=== PATIENT | female | born 1940 | race Hispanic/Latino ===

== ENCOUNTER 2017-11-16 22:24 | Emergency (ER) | payer MEDICARE ==
[~2017-11-16 22:24] MED LIST: ALLO100T PO; FOLI1TAB61 PO; PRAV40TA3 PO; TELM1TAB31 PO
[2017-11-16 23:15] LABS: BASOPHILS % (AUTO) 0.5 % (0.0-5.0); EOSINOPHILS % (AUTO) 1.7 % (0.0-8.0); HEMATOCRIT 29.9 % (36-48); LYMPHOCYTES % (AUTO) 16.2 % (21.0-51.0); MEAN CORPUSCULAR HEMOGLOBIN 30.6 pg (27.0-33.0); MEAN CORPUSCULAR HGB CONC 35.4 g/dL (32.0-36.0); MEAN CORPUSCULAR VOLUME 86.3 fL (79-99); MONOCYTES % (AUTO) 6.2 % (3.0-13.0); NEUTROPHILS % (AUTO) 75.4 % (40.0-77.0); PLATELET COUNT (AUTO) 258 K/uL (130-400); RED BLOOD CELL COUNT(AUTO) 3.47 MIL/uL (4.00-5.50); RED CELL DISTRIBUTION WIDTH 14.7 % (11.0-15.5); WHITE BLOOD COUNT (AUTO) 11.2 K/uL (4.8-10.8)
[2017-11-16 23:34] LABS: CREATININE 1.1 mg/dL (0.5-1.5); POTASSIUM 3.6 mmol/L (3.5-5.1)
[2017-11-16 23:38] LABS: ALBUMIN 3.4 g/dL (3.5-5.0); BILIRUBIN,TOTAL 0.2 mg/dL (0.2-1.0); TOTAL PROTEIN, SERUM 7.8 g/dL (6.0-8.3)
[2017-11-16 23:43] LABS: B-TYPE NATRIURETIC PEPTIDE 15 pg/mL (0-100)
[2017-11-16] MEDS ORDERED: PANTOPRAZOLE SODIUM 40 MG TABLET.DR PO ONE (23:57)
[2017-11-16] MEDS ORDERED: SUCRALFATE 1 GM TABLET ONE (23:57)
== END 2017-11-17 02:41 | disposition home or self-care (01) ==
LOC: EDH 22:24
DX: K29.70 Gastritis, unspecified, without bleeding (principal); E78.5 Hyperlipidemia, unspecified; I10 Essential (primary) hypertension; K21.9 Gastro-esophageal reflux disease without esophagitis; Z88.6 Allergy status to analgesic agent
CPT/HCPCS: 36415; 80053; 82550; 83690; 83880; 84484; 85025; 93005

== ENCOUNTER 2018-06-18 10:24 | Emergency (ER) | payer MEDICARE ==
[2018-06-18 11:16] LABS: APPEARANCE,URINE Clear (CLEAR); BILIRUBIN,URINE Negative (NEGATIVE); COLOR,URINE Yellow (YELLOW); GLUCOSE, URINE (UA) Negative (NEGATIVE); KETONES,URINE Negative (NEGATIVE); LEUKOCYTE ESTERASE ,URINE Negative (NEGATIVE); NITRATE,URINE Negative (NEGATIVE); OCCULT BLOOD,URINE Negative (NEGATIVE); PROTEIN,URINE Negative (NEGATIVE); UROBILINOGEN,URINE 0.2 mg/dL (0.2-1.0)
[2018-06-18 11:19] LABS: CREATININE 1.1 mg/dL (0.5-1.5); POTASSIUM 4.4 mmol/L (3.5-5.1)
[2018-06-18 11:28] LABS: ALBUMIN 3.6 g/dL (3.5-5.0); BILIRUBIN,TOTAL 0.5 mg/dL (0.2-1.0); TOTAL PROTEIN, SERUM 8.4 g/dL (6.0-8.3)
[2018-06-18 11:34] LABS: BASOPHILS % (AUTO) 0.4 % (0.0-5.0); EOSINOPHILS % (AUTO) 1.4 % (0.0-8.0); HEMATOCRIT 33.7 % (36-48); LYMPHOCYTES % (AUTO) 9.7 % (21.0-51.0); MEAN CORPUSCULAR HEMOGLOBIN 30.2 pg (27.0-33.0); MEAN CORPUSCULAR VOLUME 88.8 fL (79-99); MONOCYTES % (AUTO) 5.4 % (3.0-13.0); NEUTROPHILS % (AUTO) 83.1 % (40.0-77.0); PLATELET COUNT (AUTO) 233 K/uL (130-400); RED BLOOD CELL COUNT(AUTO) 3.79 MIL/uL (4.00-5.50); RED CELL DISTRIBUTION WIDTH 14.9 % (11.0-15.5); WHITE BLOOD COUNT (AUTO) 13.9 K/uL (4.8-10.8)
[2018-06-18] MEDS ORDERED: ONDANSETRON HCL 4 MG/2 ML VIAL ONE (12:00)
[2018-06-18] MEDS ORDERED: IOHEXOL-350 75 ML VIAL IV ONE (12:35)
== END 2018-06-18 14:11 | disposition home or self-care (01) ==
LOC: EDH 10:24
DX: K57.92 Diverticulitis of intestine, part unspecified, without perforation or abscess without bleeding (principal); K21.9 Gastro-esophageal reflux disease without esophagitis; E78.5 Hyperlipidemia, unspecified; I10 Essential (primary) hypertension; Z88.6 Allergy status to analgesic agent; Z88.8 Allergy status to other drugs, medicaments and biological substances; Z90.710 Acquired absence of both cervix and uterus; Z90.49 Acquired absence of other specified parts of digestive tract
CPT/HCPCS: 36415; 74177; 80053; 81003; 83690; 85025; 96374; 99285; J2405; Q9967

== ENCOUNTER 2018-06-21 10:34 | Inpatient (IN) | payer MEDICARE ==
[~2018-06-21] VITALS: Ht 168.9 cm; Wt 82.8 kg
[2018-06-21 11:14] LABS: CREATININE 1.4 mg/dL (0.5-1.5); POTASSIUM 3.5 mmol/L (3.5-5.1)
[2018-06-21 11:20] LABS: ALBUMIN 3.3 g/dL (3.5-5.0); BILIRUBIN,TOTAL 0.4 mg/dL (0.2-1.0); TOTAL PROTEIN, SERUM 7.8 g/dL (6.0-8.3)
[2018-06-21 11:21] LABS: BASOPHILS % (AUTO) 0.5 % (0.0-5.0); EOSINOPHILS % (AUTO) 2.7 % (0.0-8.0); HEMATOCRIT 28.8 % (36-48); LYMPHOCYTES % (AUTO) 10.8 % (21.0-51.0); MEAN CORPUSCULAR HEMOGLOBIN 29.6 pg (27.0-33.0); MEAN CORPUSCULAR HGB CONC 33.8 g/dL (32.0-36.0); MEAN CORPUSCULAR VOLUME 87.6 fL (79-99); MONOCYTES % (AUTO) 6.6 % (3.0-13.0); NEUTROPHILS % (AUTO) 79.4 % (40.0-77.0); PLATELET COUNT (AUTO) 205 K/uL (130-400); RED BLOOD CELL COUNT(AUTO) 3.28 MIL/uL (4.00-5.50); RED CELL DISTRIBUTION WIDTH 14.3 % (11.0-15.5); WHITE BLOOD COUNT (AUTO) 10.8 K/uL (4.8-10.8)
[2018-06-21 11:47] LABS: INR 1.02 (0.85-1.15); PARTIAL THROMBOPLASTIN TIME 37.6 SEC (26.3-35.5); PROTHROMBIN TIME 10.7 SEC (9.6-11.6)
[2018-06-21] MEDS ORDERED: SODIUM CHLORIDE 0.9% 1000ML 1,000 ML IV ONE (12:09)
[2018-06-21 12:40] LABS: APPEARANCE,URINE Clear (CLEAR); BILIRUBIN,URINE Negative (NEGATIVE); COLOR,URINE Yellow (YELLOW); GLUCOSE, URINE (UA) Negative (NEGATIVE); KETONES,URINE Negative (NEGATIVE); LEUKOCYTE ESTERASE ,URINE Negative (NEGATIVE); NITRATE,URINE Negative (NEGATIVE); OCCULT BLOOD,URINE Negative (NEGATIVE); PROTEIN,URINE Negative (NEGATIVE)
[2018-06-21] MEDS ORDERED: ONDANSETRON HCL 4 MG/2 ML VIAL IV PRN (13:00)
[2018-06-21] MEDS ORDERED: ACETAMINOPHEN 325 MG TAB PO PRN (13:00)
[2018-06-21] MEDS: METRONIDAZOLE 500MG/100ML BAG 100 ML IV SCH ×2 (13:00→21:51)
[2018-06-21] MEDS: LEVOFLOXACIN 500 MG/D5W 100 ML 100 ML IV SCH (13:00)
[2018-06-21] MEDS ORDERED: PANTOPRAZOLE SODIUM 40 MG TABLET.DR PO ONE (13:27)
[2018-06-21] MEDS ORDERED: LEVOFLOXACIN 500 MG/D5W 100 ML 100 ML ONE (13:27)
[2018-06-21] MEDS ORDERED: ENOXAPARIN SODIUM 40 MG/0.4 ML SYRINGE SQ ONE (13:27)
[2018-06-21] MEDS ORDERED: METRONIDAZOLE 500MG/100ML BAG 100 ML ONE (15:25)
[2018-06-21 16:50] VITALS: BP 135/67
[2018-06-21] MEDS ORDERED: LACTULOSE 20 GM/30 ML UDCUP PO PRN (18:30)
[2018-06-21] MEDS ORDERED: CIPR500S5 PO (18:34)
[2018-06-21] MEDS ORDERED: ONDA4TAB10 PO (18:34)
[2018-06-21] MEDS ORDERED: METR500T4 PO (18:34)
[2018-06-21 19:00] VITALS: BP 127/63
[2018-06-21] MEDS: SODIUM CHLORIDE 0.9% 1000ML 1,000 ML IV SCH ×2 (20:32→21:58)
[2018-06-21] MEDS: DOCUSATE SODIUM 100 MG CAP PO SCH (21:51)
[2018-06-21 23:00] VITALS: BP 126/58
[2018-06-22 03:00] VITALS: BP 125/84
[2018-06-22 05:25] LABS: MEAN CORPUSCULAR HEMOGLOBIN 30.1 pg (27.0-33.0); MEAN CORPUSCULAR HGB CONC 34.3 g/dL (32.0-36.0); MEAN CORPUSCULAR VOLUME 87.8 fL (79-99); PLATELET COUNT (AUTO) 219 K/uL (130-400); RED BLOOD CELL COUNT(AUTO) 3.07 MIL/uL (4.00-5.50); RED CELL DISTRIBUTION WIDTH 14.5 % (11.0-15.5); WHITE BLOOD COUNT (AUTO) 6.6 K/uL (4.8-10.8)
[2018-06-22 05:35] LABS: ALBUMIN 2.8 g/dL (3.5-5.0); CREATININE 1.2 mg/dL (0.5-1.5); CRP QUANTITATIVE 86.1 mg/L (0.00-9.0); POTASSIUM 3.7 mmol/L (3.5-5.1)
[2018-06-22] MEDS: METRONIDAZOLE 500MG/100ML BAG 100 ML IV SCH ×2 (06:01→12:11)
[2018-06-22] MEDS: SODIUM CHLORIDE 0.9% 1000ML 1,000 ML IV SCH ×2 (06:05→12:09)
[2018-06-22 07:57] VITALS: BP 145/52
[2018-06-22] MEDS ORDERED: ALLOPURINOL 100 MG TABLET PO SCH (09:00)
[2018-06-22] MEDS ORDERED: ATORVASTATIN CALCIUM 10 MG TABLET PO SCH (09:00)
[2018-06-22] MEDS ORDERED: LOSARTAN 50 MG TABLET PO SCH (09:00)
[2018-06-22] MEDS ORDERED: PANTOPRAZOLE SODIUM 40 MG TABLET.DR PO SCH (09:00)
[2018-06-22] MEDS ORDERED: ENOXAPARIN SODIUM 40 MG/0.4 ML SYRINGE SQ SCH (09:00)
[2018-06-22] MEDS: DOCUSATE SODIUM 100 MG CAP PO SCH (09:20)
[2018-06-22 11:38] VITALS: BP 130/62
[2018-06-22] MEDS: LEVOFLOXACIN 500 MG/D5W 100 ML 100 ML IV SCH (12:11)
== END 2018-06-22 16:20 | disposition home or self-care (01) | DRG 683 ==
LOC: EDH 10:34 → EDHIP 12:50 → 3BH 16:27
PROVIDERS: ADMIT Internal Medicine; ATTEND Internal Medicine
DX: N17.9 Acute kidney failure, unspecified (principal); K57.92 Diverticulitis of intestine, part unspecified, without perforation or abscess without bleeding; E87.1 Hypo-osmolality and hyponatremia; E86.1 Hypovolemia; E78.5 Hyperlipidemia, unspecified; I10 Essential (primary) hypertension; E66.9 Obesity, unspecified; K20.8 Other esophagitis; T50.905A Adverse effect of unspecified drugs, medicaments and biological substances, initial encounter; K21.9 Gastro-esophageal reflux disease without esophagitis; Z96.653 Presence of artificial knee joint, bilateral; Z68.29 Body mass index [BMI] 29.0-29.9, adult; Z90.710 Acquired absence of both cervix and uterus; Z88.5 Allergy status to narcotic agent; Z88.8 Allergy status to other drugs, medicaments and biological substances; Z82.49 Family history of ischemic heart disease and other diseases of the circulatory system; Z82.3 Family history of stroke; Z82.41 Family history of sudden cardiac death
CPT/HCPCS: 36415; 80048; 80053; 81003; 82040; 82550; 83690; 84484; 85025; 85027; 85610; 85730; 86140; 93005; J1650; J1956; J3490; J7030

== ENCOUNTER 2018-06-27 03:44 | Emergency (ER) | payer MEDICARE ==
[~2018-06-27 03:44] MED LIST changes: +CIPR500S5 PO; -FOLI1TAB61 PO; +METR500T4 PO; +ONDA4TAB10 PO; -TELM1TAB31 PO
[2018-06-27 05:35] LABS: BILIRUBIN,URINE Negative (NEGATIVE); COLOR,URINE Dark Yellow (YELLOW); GLUCOSE, URINE (UA) Negative (NEGATIVE); KETONES,URINE Trace mg/dL (NEGATIVE); LEUKOCYTE ESTERASE ,URINE Trace (NEGATIVE); NITRATE,URINE Negative (NEGATIVE); OCCULT BLOOD,URINE Negative (NEGATIVE); PROTEIN,URINE Negative (NEGATIVE)
[2018-06-27 05:48] LABS: BASOPHILS % (AUTO) 0.4 % (0.0-5.0); EOSINOPHILS % (AUTO) 2.5 % (0.0-8.0); HEMATOCRIT 26.8 % (36-48); LYMPHOCYTES % (AUTO) 10.6 % (21.0-51.0); MEAN CORPUSCULAR HEMOGLOBIN 28.9 pg (27.0-33.0); MEAN CORPUSCULAR VOLUME 87.4 fL (79-99); NEUTROPHILS % (AUTO) 79.5 % (40.0-77.0); PLATELET COUNT (AUTO) 251 K/uL (130-400); RED BLOOD CELL COUNT(AUTO) 3.07 MIL/uL (4.00-5.50); RED CELL DISTRIBUTION WIDTH 14.6 % (11.0-15.5); WHITE BLOOD COUNT (AUTO) 10.3 K/uL (4.8-10.8)
[2018-06-27 05:52] LABS: APPEARANCE,URINE SLIGHTLY CLOUDY (CLEAR)
[2018-06-27 05:53] LABS: BACTERIA,URINE Rare /HPF (None Seen); RBC,URINE 0-1 /HPF (0-1); SQUAMOUS EPITHELIAL CELL,UR 0-2 /HPF (0-2); WBC,URINE 0-1 /HPF (0-1)
[2018-06-27 05:57] LABS: CREATININE 1.5 mg/dL (0.5-1.5); POTASSIUM 3.6 mmol/L (3.5-5.1)
[2018-06-27 06:03] LABS: ALBUMIN 2.9 g/dL (3.5-5.0); BILIRUBIN,TOTAL 0.3 mg/dL (0.2-1.0); TOTAL PROTEIN, SERUM 6.4 g/dL (6.0-8.3)
[2018-06-27] MEDS ORDERED: ONDANSETRON HCL 4 MG/2 ML VIAL ONE (06:03)
[2018-06-27] MEDS ORDERED: SODIUM CHLORIDE 0.9% 500ML 0 ML IV ONE (06:04)
== END 2018-06-27 06:30 | disposition home or self-care (01) ==
LOC: EDH 03:44
DX: R10.30 Lower abdominal pain, unspecified (principal); R30.0 Dysuria; R35.0 Frequency of micturition; K21.9 Gastro-esophageal reflux disease without esophagitis; E78.5 Hyperlipidemia, unspecified; I10 Essential (primary) hypertension; Z88.6 Allergy status to analgesic agent; Z88.8 Allergy status to other drugs, medicaments and biological substances
CPT/HCPCS: 36415; 74176; 80053; 81001; 83690; 85025; J2405; J7040

== ENCOUNTER 2018-07-11 04:49 | Emergency (ER) | payer MEDICARE ==
[2018-07-11 05:45] LABS: BASOPHILS % (AUTO) 0.4 % (0.0-5.0); EOSINOPHILS % (AUTO) 0.3 % (0.0-8.0); HEMATOCRIT 30.4 % (36-48); MEAN CORPUSCULAR HEMOGLOBIN 29.3 pg (27.0-33.0); MEAN CORPUSCULAR HGB CONC 33.4 g/dL (32.0-36.0); MEAN CORPUSCULAR VOLUME 87.9 fL (79-99); MONOCYTES % (AUTO) 6.1 % (3.0-13.0); NEUTROPHILS % (AUTO) 83.2 % (40.0-77.0); NUCLEATED RED BLOOD CELLS 0.1 % (0.0-0.19); PLATELET COUNT (AUTO) 276 K/uL (130-400); RED BLOOD CELL COUNT(AUTO) 3.46 MIL/uL (4.00-5.50); RED CELL DISTRIBUTION WIDTH 15.5 % (11.0-15.5); WHITE BLOOD COUNT (AUTO) 10.6 K/uL (4.8-10.8)
[2018-07-11] MEDS ORDERED: SODIUM CHLORIDE 0.9% 100 ML IV ONE (05:51)
[2018-07-11] MEDS ORDERED: ONDANSETRON HCL 4 MG/2 ML VIAL ONE (05:51)
[2018-07-11] MEDS ORDERED: FAMOTIDINE/PF 20 MG/2 ML VIAL IV ONE (05:52)
[2018-07-11 05:56] LABS: CREATININE 1.1 mg/dL (0.5-1.5)
[2018-07-11 06:03] LABS: BILIRUBIN,TOTAL 0.3 mg/dL (0.2-1.0); TOTAL PROTEIN, SERUM 7.5 g/dL (6.0-8.3)
[2018-07-11] MEDS ORDERED: SUCRALFATE 1 GM TABLET ONE (06:35)
== END 2018-07-11 09:08 | disposition home or self-care (01) ==
LOC: EDH 04:49
DX: R10.13 Epigastric pain (principal); R11.2 Nausea with vomiting, unspecified; K21.9 Gastro-esophageal reflux disease without esophagitis; E78.5 Hyperlipidemia, unspecified; I10 Essential (primary) hypertension; Z88.6 Allergy status to analgesic agent; Z88.8 Allergy status to other drugs, medicaments and biological substances
CPT/HCPCS: 36415; 74176; 80053; 82550; 83690; 84484 ×2; 85025; 93005 ×2; 96361; 96374; 96375; 99285; J2405; J3490

== ENCOUNTER 2018-07-12 23:13 | Emergency (ER) | payer MEDICARE ==
[2018-07-12 23:54] LABS: BASOPHILS % (AUTO) 0.4 % (0.0-5.0); EOSINOPHILS % (AUTO) 0.7 % (0.0-8.0); HEMATOCRIT 28.8 % (36-48); LYMPHOCYTES % (AUTO) 13.4 % (21.0-51.0); MEAN CORPUSCULAR HEMOGLOBIN 30.1 pg (27.0-33.0); MEAN CORPUSCULAR HGB CONC 34.2 g/dL (32.0-36.0); NEUTROPHILS % (AUTO) 79.5 % (40.0-77.0); PLATELET COUNT (AUTO) 273 K/uL (130-400); RED BLOOD CELL COUNT(AUTO) 3.27 MIL/uL (4.00-5.50); RED CELL DISTRIBUTION WIDTH 15.4 % (11.0-15.5)
[2018-07-13 00:03] LABS: CREATININE 1.1 mg/dL (0.5-1.5)
[2018-07-13 00:08] LABS: ALBUMIN 3.1 g/dL (3.5-5.0); BILIRUBIN,DIRECT 0.1 mg/dL (0.0-0.3); BILIRUBIN,TOTAL 0.3 mg/dL (0.2-1.0); TOTAL PROTEIN, SERUM 7.4 g/dL (6.0-8.3)
[2018-07-13] MEDS ORDERED: ONDANSETRON HCL 4 MG/2 ML VIAL ONE (00:14)
[2018-07-13] MEDS ORDERED: SODIUM CHLORIDE 0.9% 500ML 500 ML IV ONE (00:15)
[2018-07-13 02:30] LABS: APPEARANCE,URINE Clear (CLEAR); BILIRUBIN,URINE Negative (NEGATIVE); COLOR,URINE Yellow (YELLOW); GLUCOSE, URINE (UA) Negative (NEGATIVE); KETONES,URINE Negative (NEGATIVE); LEUKOCYTE ESTERASE ,URINE Small (NEGATIVE); NITRATE,URINE Negative (NEGATIVE); OCCULT BLOOD,URINE Negative (NEGATIVE); PROTEIN,URINE Negative (NEGATIVE); UROBILINOGEN,URINE 0.2 mg/dL (0.2-1.0)
[2018-07-13 02:42] LABS: BACTERIA,URINE Few /HPF (None Seen); RBC,URINE 0-1 /HPF (0-1)
== END 2018-07-13 03:47 | disposition home or self-care (01) ==
LOC: EDH 23:13
DX: R10.13 Epigastric pain (principal); K21.9 Gastro-esophageal reflux disease without esophagitis; E78.5 Hyperlipidemia, unspecified; I10 Essential (primary) hypertension; Z98.890 Other specified postprocedural states; Z88.6 Allergy status to analgesic agent; Z88.8 Allergy status to other drugs, medicaments and biological substances
CPT/HCPCS: 36415; 76705; 80048; 80076; 81001; 82550; 83690; 84484; 85025; 93005; 96374; 99285; J2405; J7040

== ENCOUNTER → 2019-04-05 | Outpatient (CLI) | payer MEDICARE ==
[~2019-04-05] MED LIST changes: +METR-172 PO; -METR500T4 PO
== END | disposition home or self-care (01) ==
LOC: SHCH 13:43
PROVIDERS: ATTEND Internal Medicine Cardiovascular Disease
DX: I11.9 Hypertensive heart disease without heart failure (principal); I35.0 Nonrheumatic aortic (valve) stenosis
CPT/HCPCS: 93306

== ENCOUNTER 2019-10-30 14:33 | Observation (INO) | payer MEDICARE, OTHER ==
[~2019-10-30] VITALS: Ht 167.6 cm; Wt 79.6 kg
[2019-10-30 16:06] LABS: BASOPHILS % (AUTO) 0.3 % (0.0-5.0); EOSINOPHILS % (AUTO) 1.1 % (0.0-8.0); HEMATOCRIT 33.7 % (36-48); LYMPHOCYTES % (AUTO) 13.7 % (21.0-51.0); MEAN CORPUSCULAR HEMOGLOBIN 28.5 pg (27.0-33.0); MEAN CORPUSCULAR HGB CONC 32.6 g/dL (32.0-36.0); MEAN CORPUSCULAR VOLUME 87.3 fL (79-99); MONOCYTES % (AUTO) 4.8 % (3.0-13.0); NEUTROPHILS % (AUTO) 79.3 % (40.0-77.0); PLATELET COUNT (AUTO) 202 K/uL (130-400); RED BLOOD CELL COUNT(AUTO) 3.86 MIL/uL (4.00-5.50); RED CELL DISTRIBUTION WIDTH 14.6 % (11.0-15.5); WHITE BLOOD COUNT (AUTO) 9.6 K/uL (4.8-10.8)
[2019-10-30 16:21] LABS: CREATININE 1.1 mg/dL (0.5-1.5); POTASSIUM 3.6 mmol/L (3.5-5.1)
[2019-10-30 16:22] LABS: INR 0.99 (0.85-1.15); PARTIAL THROMBOPLASTIN TIME 25.6 SEC (26.3-35.5); PROTHROMBIN TIME 10.4 SEC (9.6-11.6)
[2019-10-30] MEDS ORDERED: TRAMADOL HCL 50 MG TABLET ONE (16:26)
[2019-10-30 16:27] LABS: ALBUMIN 3.5 g/dL (3.5-5.0); BILIRUBIN,TOTAL 0.3 mg/dL (0.2-1.0); TOTAL PROTEIN, SERUM 7.7 g/dL (6.0-8.3)
[2019-10-30] MEDS ORDERED: CEFAZOLIN SODIUM 1 GM VIAL ONE (17:44)
[2019-10-30] MEDS ORDERED: SODIUM CHLORIDE 0.9% 250 ML IV ONE (17:45)
[2019-10-30] MEDS ORDERED: HYDRALAZINE HCL 20 MG/ML VIAL IV PRN (18:15)
[2019-10-30] MEDS ORDERED: TRAMADOL HCL 50 MG TABLET PO PRN (18:15)
[2019-10-30] MEDS ORDERED: ONDANSETRON HCL 4 MG/2 ML VIAL IV PRN (18:15)
[2019-10-30] MEDS: SODIUM CHLORIDE 0.9% 1000ML 1,000 ML IV SCH (18:15)
[2019-10-30] MEDS: CEFAZOLIN SODIUM 1 GM VIAL IVP SCH (18:15)
[2019-10-30] MEDS ORDERED: LACTULOSE 20 GM/30 ML UDCUP PO PRN (18:15)
[2019-10-30] MEDS ORDERED: SODIUM CHLORIDE 0.9% 1000ML 1,000 ML IV ONE (19:50)
[2019-10-30] MEDS ORDERED: FAMOTIDINE 20MG TAB 20 MG TAB PO SCH (21:00)
[2019-10-30 21:48] VITALS: BP 161/67
--- NOTE | 2019-10-30 22:00 | NUR ---
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
[2019-10-30] MEDS ORDERED: TELM40TA8 PO (22:20)
[2019-10-30] MEDS ORDERED: FOLI1TAB85 PO (22:20)
[2019-10-30] MEDS ORDERED: BACL10TA PO (22:20)
[2019-10-30 22:30] VITALS: BP 148/60
[2019-10-30] MEDS ORDERED: BACLOFEN 10 MG TABLET PO PRN (22:30)
[2019-10-30 22:31] VITALS: BP 148/60
[2019-10-31] MEDS: CEFAZOLIN SODIUM 1 GM VIAL IVP SCH ×2 (03:29→10:09)
[2019-10-31 03:57] VITALS: BP 146/63
[2019-10-31 04:05] LABS: BASOPHILS % (AUTO) 0.4 % (0.0-5.0); EOSINOPHILS % (AUTO) 1.7 % (0.0-8.0); HEMATOCRIT 28.5 % (36-48); LYMPHOCYTES % (AUTO) 15.3 % (21.0-51.0); MEAN CORPUSCULAR HGB CONC 32.3 g/dL (32.0-36.0); MEAN CORPUSCULAR VOLUME 86.9 fL (79-99); MONOCYTES % (AUTO) 5.9 % (3.0-13.0); PLATELET COUNT (AUTO) 172 K/uL (130-400); RED BLOOD CELL COUNT(AUTO) 3.28 MIL/uL (4.00-5.50); RED CELL DISTRIBUTION WIDTH 14.5 % (11.0-15.5); WHITE BLOOD COUNT (AUTO) 8.5 K/uL (4.8-10.8)
[2019-10-31 04:16] LABS: CREATININE 1.1 mg/dL (0.5-1.5); POTASSIUM 3.6 mmol/L (3.5-5.1)
[2019-10-31] MEDS: SODIUM CHLORIDE 0.9% 1000ML 1,000 ML IV SCH (07:35)
[2019-10-31 07:50] VITALS: BP 136/73
[2019-10-31] MEDS ORDERED: ENOXAPARIN SODIUM 40 MG/0.4 ML SYRINGE SQ SCH (09:00)
[2019-10-31] MEDS ORDERED: FOLIC ACID/VITAMIN B COMP W-C 1 CAP TAB PO SCH (09:00)
[2019-10-31] MEDS ORDERED: ALLOPURINOL 100 MG TABLET PO SCH (09:00)
[2019-10-31] MEDS ORDERED: FAMOTIDINE 20MG TAB 20 MG TAB PO SCH (09:00)
[2019-10-31 10:56] VITALS: BP 136/68
[2019-10-31 15:50] VITALS: BP 120/63
--- NOTE | 2019-10-31 17:30 | NUR ---
DISCHARGE PATIENT GIVEN DISCHARGE INSTRUCTIONS AND EDUCATION ON FOLLOW UP APPOINTMENTS AND NEW PRESCRIBED MEDICATIONS. PATIENT VERBALIZED UNDERSTANDING OF ALL EDUCATION GIVEN VIA TEACH BACK. IV DISCONTINUED, CATHETER INTACT. PATIENT LEFT VIA WHEELCHAIR, PCP AND AT SIDE. NO DISTRESS NOTED UPON DISCHARGE. ALL BELONGINGS TAKEN WITH.
[2019-10-31] MEDS ORDERED: TELMISARTAN 40 MG PO SCH (21:00)
[2019-10-31] MEDS ORDERED: ***HM***Pravastatin Sodium 40 MG PO SCH (21:00)
== END 2019-10-31 18:00 | disposition home or self-care (01) ==
LOC: EDH 14:33 → INTOOBSV 18:10 → EDHIP 18:10 → 4AH 21:17
PROVIDERS: ADMIT Internal Medicine; ATTEND Internal Medicine
DX: S02.31XA Fracture of orbital floor, right side, initial encounter for closed fracture (principal); I12.9 Hypertensive chronic kidney disease with stage 1 through stage 4 chronic kidney disease, or unspecified chronic kidney disease; N18.9 Chronic kidney disease, unspecified; E78.5 Hyperlipidemia, unspecified; Z96.653 Presence of artificial knee joint, bilateral; Z90.710 Acquired absence of both cervix and uterus; Z88.5 Allergy status to narcotic agent; Z88.8 Allergy status to other drugs, medicaments and biological substances; Z90.49 Acquired absence of other specified parts of digestive tract; Z88.6 Allergy status to analgesic agent; W01.0XXA Fall on same level from slipping, tripping and stumbling without subsequent striking against object, initial encounter; Y93.89 Activity, other specified; Y92.481 Parking lot as the place of occurrence of the external cause; Y99.8 Other external cause status
CPT/HCPCS: 36415 ×2; 70450; 70486; 71101; 72125; 73090; 80048; 80053; 82550; 84484; 85025 ×2; 85610; 85730; 93005 ×2; 96372; 96374; 96376; 99285; G0378 ×7; J0690 ×3; J1650; J7030 ×2

== ENCOUNTER 2020-03-13 19:23 | Observation (INO) | payer OTHER ==
[~2020-03-13] VITALS: Ht 167.6 cm; Wt 78.5 kg
[2020-03-13] MEDS ORDERED: ONDANSETRON HCL 4 MG/2 ML VIAL ONE (20:49)
[2020-03-13] MEDS ORDERED: POTASSIUM CHLORIDE 20 MEQ ERTAB PO ONE (22:02)
[2020-03-13] MEDS ORDERED: ACETAMINOPHEN 325 MG TAB ONE (23:19)
[2020-03-14] MEDS ORDERED: ZOSYN 3.375GM+NS 50ML 50 ML IV ONE ×2 (01:45→08:44)
[2020-03-14] MEDS ORDERED: PHARMACY COMMUNICATION MISC SCH (02:30)
[2020-03-14] MEDS ORDERED: ONDANSETRON HCL 4 MG/2 ML VIAL IVP PRN ×2 (02:30→11:30)
[2020-03-14] MEDS ORDERED: ZOSYN 3.375GM+NS 50ML 50 ML IV SCH (03:00)
[2020-03-14] MEDS ORDERED: ACETAMINOPHEN 325 MG TAB ONE ×2 (08:44→21:29)
[2020-03-14] MEDS: INSULIN HUMULIN R 100 UNIT/ML 3ML SQ SCH ×3 (11:30→21:00)
[2020-03-14] MEDS ORDERED: GLUCAGON 1MG KIT 1 MG ML IM PRN (11:30)
[2020-03-14] MEDS ORDERED: MAGNESIUM 2GM PREMIX 50ML 50 ML IV PRN (11:30)
[2020-03-14] MEDS ORDERED: BACLOFEN 10 MG TABLET PO PRN (11:30)
[2020-03-14] MEDS ORDERED: LACTULOSE 20 GM/30 ML UDCUP PO PRN (11:30)
[2020-03-14] MEDS ORDERED: LOPERAMIDE 1 MG/7.5 ML UDCUP PO PRN (11:30)
[2020-03-14] MEDS ORDERED: DEXTROSE 50%-WATER 50 ML DISP.SYRIN IV PRN (11:30)
[2020-03-14] MEDS ORDERED: ACETAMINOPHEN 325 MG TAB PO PRN (11:30)
[2020-03-14] MEDS ORDERED: ZOLPIDEM TARTRATE 5 MG TAB PO PRN (11:30)
[2020-03-14] MEDS ORDERED: IPRATROPIUM/ALBUTEROL SULFATE 3 ML SOLUTION IH PRN (11:30)
[2020-03-14] MEDS: SODIUM CHLORIDE 0.9% 1000ML 1,000 ML IV SCH (12:30)
[2020-03-14] MEDS ORDERED: ALBUTEROL INHALER 90MCG/INH IH PRN (16:15)
[2020-03-14] MEDS ORDERED: BACLOFEN 10 MG TABLET ONE (18:13)
--- NOTE | 2020-03-14 19:08 | NUR ---
INITIAL SW spoke with son who lives in [place], Ady Mckinnon, . Another emergency contact is another son, Roly Mckinnon, [phone]. As per son, patient has no home services or DME that he is aware of. Patient is able to complete ADL's independently but does not drive. PCP is Dr. Chantell Garg. Pharmacy is [facility] or [facility] in [place]. DCP is home. Addendum: 03/14/20 at 1910 by CHANTELL LORENZO SS Amended: Links added.
[2020-03-14] MEDS ORDERED: LOSARTAN 50 MG TABLET PO SCH (21:00)
[2020-03-14] MEDS ORDERED: HYDRALAZINE HCL 20 MG/ML VIAL ONE (21:14)
[2020-03-15] MEDS ORDERED: ACETAMINOPHEN 325 MG TAB ONE (04:03)
[2020-03-15] MEDS ORDERED: POTASSIUM CHLORIDE 10% ELIXIR 20 MEQ/15 ML UDCUP ONE ×2 (06:03→06:10)
[2020-03-15] MEDS: SODIUM CHLORIDE 0.9% 1000ML 1,000 ML IV SCH ×2 (06:30→09:58)
[2020-03-15] MEDS: INSULIN HUMULIN R 100 UNIT/ML 3ML SQ SCH ×3 (07:30→16:15)
[2020-03-15] MEDS ORDERED: POTASSIUM CHLORIDE 20MEQ/100ML 100 ML IV PRN (07:30)
[2020-03-15] MEDS ORDERED: POTASSIUM CHLORIDE 10% ELIXIR 20 MEQ/15 ML UDCUP PO PRN (07:30)
[2020-03-15] MEDS ORDERED: POTASSIUM CHLORIDE 20 MEQ ERTAB PO PRN (07:30)
[2020-03-15] MEDS ORDERED: LEVOFLOXACIN 750 MG/D5W 150 ML 150 ML IV SCH (09:00)
[2020-03-15] MEDS ORDERED: ALLOPURINOL 100 MG TABLET PO SCH (09:00)
[2020-03-15] MEDS ORDERED: FOLIC ACID/VITAMIN B COMP W-C 1 CAP TAB PO SCH (09:00)
[2020-03-15] MEDS ORDERED: ENOXAPARIN SODIUM 40 MG/0.4 ML SYRINGE SQ SCH (09:00)
[2020-03-15] MEDS ORDERED: PANTOPRAZOLE SODIUM 40 MG TABLET.DR PO SCH (09:00)
[2020-03-15] MEDS ORDERED: ATORVASTATIN CALCIUM 10 MG TABLET PO SCH (09:00)
[2020-03-15] MEDS ORDERED: ENOXAPARIN SODIUM 60 MG/0.6 ML SQ ONE (09:51)
[2020-03-15 10:15] VITALS: BP 174/79; PULSE 116; RESP 20
[2020-03-15] MEDS ORDERED: HYDRALAZINE HCL 20 MG/ML VIAL ONE ×2 (10:18→16:21)
[2020-03-15] MEDS: HYDRALAZINE HCL 20 MG/ML VIAL IV PRN ×2 (10:19→16:22)
[2020-03-15] MEDS ORDERED: LEVOFLOXACIN 750 MG/D5W 150 ML 150 ML ONE (10:33)
[2020-03-15 10:37] VITALS: BP 141/43; PULSE 70
[2020-03-15 12:28] VITALS: BP 122/38; PULSE 111; RESP 18; TEMP 99
[2020-03-15 16:17] VITALS: BP 167/58; PULSE 74; RESP 18; TEMP 98.2
[2020-03-15] MEDS ORDERED: POTASSIUM CHLORIDE 20 MEQ ERTAB PO ONE (16:36)
--- NOTE | 2020-03-15 17:00 | NUR ---
DISCHARGE INSTRUCTIONS GIVEN TO PATIENTS SON DYLON OVER THE PHONE. MADE AWARE OF NEED TO FOLLOW UP WITH PCP IN 3-5 DAYS, WELL NEW RX FOR LEVAQUIN AND FLAGYL. DISCHARGE INSTRUCTIONS GIVEN TO PATIENT AT BEDSIDE. IV REMOVED. PATIENT AT THIS TIME DENIES ABDOMINAL PAIN, DENIES N/V. V/S STABLE. PATIENTS SON WAITING OUTSIDE.
[2020-03-15 17:13] VITALS: BP 149/56; PULSE 88; RESP 18; TEMP 98.2
== END 2020-03-15 14:58 | disposition home or self-care (01) ==
LOC: EDH 19:23 → EDHIP 03-14 01:03
PROVIDERS: ADMIT Internal Medicine Critical Care Medicine; ATTEND Internal Medicine Critical Care Medicine
DX: U07.1 COVID-19 (principal); K52.9 Noninfective gastroenteritis and colitis, unspecified; K21.9 Gastro-esophageal reflux disease without esophagitis; E78.5 Hyperlipidemia, unspecified; E66.9 Obesity, unspecified; I10 Essential (primary) hypertension; Z79.899 Other long term (current) drug therapy; Z88.6 Allergy status to analgesic agent; Z90.49 Acquired absence of other specified parts of digestive tract; Z88.5 Allergy status to narcotic agent
CPT/HCPCS: 36415 ×4; 71045; 74176; 80053 ×4; 80076 ×2; 81001; 82550; 82948; 83605; 83615; 83690; 84484; 85025 ×4; 87040 ×2; 87804 ×2; 93005; 96365; 96372; 96375; 99285; G0378 ×24; J0360 ×3; J1650; J1956; J2405; J2543 ×2; U0003

== ENCOUNTER 2020-03-20 22:00 | Inpatient (IN) | payer OTHER ==
[~2020-03-20] VITALS: Ht 167.6 cm; Wt 74.9 kg
[2020-03-20] MEDS ORDERED: FAMOTIDINE/PF 20 MG/2 ML VIAL IV ONE (23:02)
[2020-03-20] MEDS ORDERED: ONDANSETRON HCL 4 MG/2 ML VIAL ONE (23:57)
[2020-03-20] MEDS ORDERED: METOCLOPRAMIDE 10 MG/2 ML VIAL ONE (23:57)
[2020-03-21] MEDS ORDERED: IOHEXOL-350 50ML VIAL IV ONE (01:20)
[2020-03-21] MEDS ORDERED: IOHEXOL-350 75 ML VIAL IV ONE (01:20)
[2020-03-21] MEDS ORDERED: ZOSYN 3.375GM+NS 50ML 50 ML IV ONE ×3 (02:41→15:00)
[2020-03-21] MEDS ORDERED: LACTATED RINGERS 1000ML 1,000 ML IV ONE (04:53)
[2020-03-21] MEDS ORDERED: POTASSIUM CHLORIDE 20MEQ/100ML 100 ML IV PRN (05:45)
[2020-03-21] MEDS ORDERED: ONDANSETRON HCL 4 MG/2 ML VIAL IVP PRN (05:45)
[2020-03-21] MEDS ORDERED: HYDRALAZINE HCL 20 MG/ML VIAL IV PRN (05:45)
[2020-03-21] MEDS ORDERED: MORPHINE SULFATE 4 MG/1ML SYG IVP PRN (05:45)
[2020-03-21] MEDS ORDERED: GLUCAGON 1MG KIT 1 MG ML IM PRN (05:45)
[2020-03-21] MEDS ORDERED: DEXTROSE 50%-WATER 50 ML DISP.SYRIN IV PRN (05:45)
[2020-03-21] MEDS ORDERED: POTASSIUM CHLORIDE 20 MEQ ERTAB PO PRN (05:45)
[2020-03-21] MEDS ORDERED: ACETAMINOPHEN 325 MG TAB PO PRN (05:45)
[2020-03-21] MEDS ORDERED: POTASSIUM CHLORIDE 10% ELIXIR 20 MEQ/15 ML UDCUP PO PRN (05:45)
[2020-03-21] MEDS ORDERED: LIDOCAINE HCL-MPF 1% 2ML VIAL IJ PRN (05:45)
[2020-03-21] MEDS: LACTATED RINGERS 1000ML 1,000 ML IV SCH ×2 (05:45→15:45)
[2020-03-21] MEDS: METOCLOPRAMIDE 10 MG/2 ML VIAL IVP SCH ×3 (06:00→18:00)
[2020-03-21] MEDS ORDERED: METOCLOPRAMIDE 10 MG/2 ML VIAL ONE ×3 (06:27→15:00)
[2020-03-21] MEDS: PANTOPRAZOLE 40 MG/VIAL IVP SCH ×2 (06:30→16:30)
[2020-03-21] MEDS: INSULIN R PO SS1 SQ SCH ×4 (07:30→21:00)
[2020-03-21] MEDS ORDERED: ZOSYN 3.375GM+NS 50ML 50 ML IV SCH (12:00)
[2020-03-21] MEDS ORDERED: ONDANSETRON HCL 4 MG/2 ML VIAL ONE (12:18)
[2020-03-21] MEDS ORDERED: ACETAMINOPHEN 325 MG TAB ONE ×2 (18:27→21:35)
[2020-03-21] MEDS ORDERED: DEXAMETHASONE 10MG/ML 1ML VIAL 10 MG in SODIUM CHLORIDE 0.9% 50 ML IV SCH (18:45)
[2020-03-21 19:37] VITALS: PULSE 73; RESP 18
[2020-03-22] MEDS ORDERED: ZOSYN 3.375GM+NS 50ML 50 ML IV ONE ×3 (01:45→16:36)
[2020-03-22] MEDS: LACTATED RINGERS 1000ML 1,000 ML IV SCH ×3 (01:45→21:45)
[2020-03-22] MEDS ORDERED: METOCLOPRAMIDE 10 MG/2 ML VIAL ONE ×2 (05:45→14:24)
[2020-03-22] MEDS ORDERED: PANTOPRAZOLE SODIUM 40 MG TABLET.DR ONE (05:50)
[2020-03-22] MEDS: METOCLOPRAMIDE 10 MG/2 ML VIAL IVP SCH ×4 (06:00→18:00)
[2020-03-22] MEDS: PANTOPRAZOLE 40 MG/VIAL IVP SCH ×2 (06:30→16:30)
[2020-03-22] MEDS: INSULIN R PO SS1 SQ SCH ×4 (07:30→21:00)
[2020-03-22 08:20] VITALS: PULSE 81; RESP 18
[2020-03-22] MEDS: ENOXAPARIN SODIUM 40 MG/0.4 ML SYRINGE SQ SCH (09:00)
[2020-03-22] MEDS ORDERED: INSULIN HUMULIN R 100 UNIT/ML 3ML ONE (09:52)
[2020-03-22] MEDS ORDERED: DEXAMETHASONE SOD PHOSPHATE 4 MG/ML 1ML VIAL ONE (11:01)
[2020-03-22] MEDS ORDERED: ONDANSETRON HCL 4 MG/2 ML VIAL ONE (14:24)
[2020-03-22] MEDS ORDERED: POTASSIUM CHLORIDE 10% ELIXIR 20 MEQ/15 ML UDCUP ONE ×2 (14:24→16:35)
--- NOTE | 2020-03-22 18:50 | NUR ---
INITIAL SW spoke with son, Roly Mckinnon, [phone]. As per son, patient lives with spouse and other son, Jonatan Mckinnon, . Another emergency contact is son in [place], Ady Mckinnon, . Patient has no home services. DME: [employer]. Patient is able to complete ADL's independently but does not drive. Family assists with transportation. PCP is Dr. Shazia Garg. Pharmacy is [facility] in [place]. DCP is home. Addendum: 03/22/20 at 1852 by SHAZIA OVALLES Amended: Links added.
[2020-03-22 18:54] VITALS: PULSE 58; RESP 28
[2020-03-22] MEDS ORDERED: TEMAZEPAM 7.5 MG CAPSULE PO ONE (22:14)
[2020-03-23] MEDS ORDERED: METOCLOPRAMIDE 10 MG/2 ML VIAL ONE ×4 (00:42→21:13)
[2020-03-23] MEDS: ZOSYN 3.375GM+NS 50ML 50 ML IV SCH ×3 (01:00→17:00)
[2020-03-23] MEDS: METOCLOPRAMIDE 10 MG/2 ML VIAL IVP SCH ×4 (06:00→18:00)
[2020-03-23] MEDS: PANTOPRAZOLE 40 MG/VIAL IVP SCH ×2 (06:30→16:30)
[2020-03-23 07:09] VITALS: PULSE 56; RESP 28
[2020-03-23] MEDS: INSULIN R PO SS1 SQ SCH ×4 (07:30→21:00)
[2020-03-23] MEDS: LACTATED RINGERS 1000ML 1,000 ML IV SCH ×3 (07:45→22:31)
[2020-03-23] MEDS: ENOXAPARIN SODIUM 40 MG/0.4 ML SYRINGE SQ SCH (09:00)
--- NOTE | 2020-03-23 10:52 | NUR ---
CHART REVIEWED, DISCUSSED WITH ANTHALIA MERRITT ON 4 L /96% weaing to discharge? call to RT, can patient o2 be weaned? will follow Addendum: 03/23/20 at 1053 by FELY VALLES RN CM Amended: Links added.
[2020-03-23] MEDS ORDERED: DEXAMETHASONE 10MG/ML 1ML VIAL 6 MG in SODIUM CHLORIDE 0.9% 50 ML IV SCH (11:00)
[2020-03-23] MEDS ORDERED: ASCORBIC ACID 500 MG TAB ONE (11:16)
[2020-03-23] MEDS ORDERED: ZINC SULFATE 220 CAPSULE ONE (11:17)
[2020-03-23] MEDS ORDERED: ERGOCALCIFEROL (VITAMIN D2) 50,000 UNIT CAPSULE ONE (11:17)
[2020-03-23] MEDS ORDERED: DEXAMETHASONE 4 MG TAB ONE (11:17)
[2020-03-23] MEDS ORDERED: ZOSYN 3.375GM+NS 50ML 50 ML IV ONE ×2 (11:18→21:13)
[2020-03-23] MEDS ORDERED: ASCORBIC ACID 500 MG TAB PO SCH (13:30)
[2020-03-23] MEDS ORDERED: ERGOCALCIFEROL (VITAMIN D2) 50,000 UNIT CAPSULE PO SCH (14:00)
[2020-03-23] MEDS: DEXAMETHASONE SOD PHOSPHATE 4 MG/ML 1ML VIAL IVP SCH (14:00)
[2020-03-23 14:26] VITALS: PULSE 92; RESP 20
[2020-03-23 19:45] VITALS: PULSE 63; RESP 16
[2020-03-23] MEDS ORDERED: ACETAMINOPHEN 325 MG TAB ONE (21:14)
[2020-03-23 21:40] VITALS: BP 133/70; PULSE 103; RESP 18; TEMP 98.1
[2020-03-23] MEDS: TEMAZEPAM 7.5 MG CAPSULE PO PRN (22:31)
[2020-03-24] VITALS: BP 153/81; PULSE 69; RESP 18; TEMP 98.3
[2020-03-24] MEDS: METOCLOPRAMIDE 10 MG/2 ML VIAL IVP SCH ×4 (00:31→18:22)
[2020-03-24] MEDS: ZOSYN 3.375GM+NS 50ML 50 ML IV SCH ×3 (01:00→18:22)
[2020-03-24 04:00] VITALS: BP 172/62; PULSE 72; RESP 18; TEMP 97.8
[2020-03-24] MEDS: INSULIN R PO SS1 SQ SCH ×4 (05:46→21:00)
[2020-03-24] MEDS: PANTOPRAZOLE SODIUM 40 MG TABLET.DR PO SCH ×2 (07:25→18:22)
[2020-03-24 08:00] VITALS: BP 156/73; PULSE 82; RESP 22; TEMP 97.6
[2020-03-24] MEDS: ZINC SULFATE 220 CAPSULE PO SCH (08:54)
[2020-03-24] MEDS: ASCORBIC ACID 500 MG TAB PO SCH (08:55)
[2020-03-24] MEDS: DEXAMETHASONE SOD PHOSPHATE 4 MG/ML 1ML VIAL IVP SCH (08:55)
[2020-03-24] MEDS: ENOXAPARIN SODIUM 40 MG/0.4 ML SYRINGE SQ SCH (09:13)
[2020-03-24 11:00] VITALS: BP 142/62; PULSE 78; RESP 24; TEMP 97.5
[2020-03-24] MEDS: LACTATED RINGERS 1000ML 1,000 ML IV SCH (14:03)
[2020-03-24 15:00] VITALS: BP 154/61; PULSE 65; RESP 24; TEMP 98.3
[2020-03-24 20:00] VITALS: BP 156/76; PULSE 72; RESP 18; TEMP 97
[2020-03-24] MEDS: TEMAZEPAM 7.5 MG CAPSULE PO PRN (22:13)
[2020-03-25] VITALS: BP 168/71; PULSE 64; RESP 18; TEMP 97.6
[2020-03-25] MEDS: ZOSYN 3.375GM+NS 50ML 50 ML IV SCH ×2 (01:08→09:08)
[2020-03-25 04:00] VITALS: BP 165/58; PULSE 53; RESP 18; TEMP 98.4
[2020-03-25] MEDS: METOCLOPRAMIDE 10 MG/2 ML VIAL IVP SCH ×3 (06:00→13:11)
[2020-03-25] MEDS: INSULIN R PO SS1 SQ SCH ×2 (06:26→11:30)
[2020-03-25] MEDS: PANTOPRAZOLE SODIUM 40 MG TABLET.DR PO SCH ×2 (07:15→15:36)
[2020-03-25 08:00] VITALS: BP 145/113; PULSE 80; RESP 18; TEMP 98.4
[2020-03-25] MEDS: ENOXAPARIN SODIUM 40 MG/0.4 ML SYRINGE SQ SCH (09:01)
[2020-03-25] MEDS: ZINC SULFATE 220 CAPSULE PO SCH (09:01)
[2020-03-25] MEDS: DEXAMETHASONE SOD PHOSPHATE 4 MG/ML 1ML VIAL IVP SCH (09:02)
[2020-03-25] MEDS: ASCORBIC ACID 500 MG TAB PO SCH (09:02)
[2020-03-25] MEDS: LACTATED RINGERS 1000ML 1,000 ML IV SCH ×2 (09:09→09:31)
[2020-03-25 12:00] VITALS: BP 152/60; PULSE 68; PULSE 73; PULSE 80; RESP 20; TEMP 97.8
[2020-03-25 16:00] VITALS: BP 176/78; PULSE 56; RESP 18; TEMP 97.9
--- NOTE | 2020-03-25 17:48 | NUR ---
Pt cleared by primary team and discharged home today. DC instructions reviewed with pt and family. Pt verbalized understanding. Patient brought to ER by tech and taken home by son.
== END 2020-03-25 20:15 | disposition home or self-care (01) | DRG 177 ==
LOC: EDH 22:00 → EDHIP 03-21 04:40 → 4AH 03-23 21:24
PROVIDERS: ADMIT Internal Medicine Critical Care Medicine; ATTEND Internal Medicine Critical Care Medicine
DX: U07.1 COVID-19 (principal); J96.01 Acute respiratory failure with hypoxia; J12.89 Other viral pneumonia; I10 Essential (primary) hypertension; E78.5 Hyperlipidemia, unspecified; E66.9 Obesity, unspecified; Z68.27 Body mass index [BMI] 27.0-27.9, adult; F03.90 Unspecified dementia, unspecified severity, without behavioral disturbance, psychotic disturbance, mood disturbance, and anxiety; Z79.899 Other long term (current) drug therapy; Z90.49 Acquired absence of other specified parts of digestive tract; Z90.710 Acquired absence of both cervix and uterus; K21.9 Gastro-esophageal reflux disease without esophagitis; Z88.5 Allergy status to narcotic agent; Z88.8 Allergy status to other drugs, medicaments and biological substances

== ENCOUNTER 2020-03-29 21:04 | Emergency (ER) | payer OTHER ==
[~2020-03-29 21:04] MED LIST changes: +BACL10TA PO; -CIPR500S5 PO; +DEXA6TAB PO; +DOXY100C2 PO; +FOLI1TAB85 PO; -METR-172 PO; -ONDA4TAB10 PO; +TELM40TA8 PO
[2020-03-29] MEDS ORDERED: LORAZEPAM 2 MG/ML 1 ML VIAL ONE (21:53)
[2020-03-29 22:57] LABS: BASOPHILS % (AUTO) 0.4 % (0.0-5.0); EOSINOPHILS % (AUTO) 1.5 % (0.0-8.0); HEMATOCRIT 30.8 % (36-48); LYMPHOCYTES % (AUTO) 14.1 % (21.0-51.0); MEAN CORPUSCULAR HGB CONC 32.8 g/dL (32.0-36.0); MEAN CORPUSCULAR VOLUME 85.3 fL (79-99); MONOCYTES % (AUTO) 9.2 % (3.0-13.0); NEUTROPHILS % (AUTO) 70.9 % (40.0-77.0); PLATELET COUNT (AUTO) 287 K/uL (130-400); RED BLOOD CELL COUNT(AUTO) 3.61 MIL/uL (4.00-5.50); RED CELL DISTRIBUTION WIDTH 13.6 % (11.0-15.5); WHITE BLOOD COUNT (AUTO) 8.2 K/uL (4.8-10.8)
[2020-03-29 23:10] LABS: BILIRUBIN,TOTAL 0.6 mg/dL (0.2-1.0); CREATININE 0.9 mg/dL (0.5-1.5); TOTAL PROTEIN, SERUM 7.3 g/dL (6.0-8.3)
[2020-03-29] MEDS ORDERED: POTASSIUM CHLORIDE 20 MEQ ERTAB PO ONE (23:19)
== END 2020-03-30 00:03 | disposition home or self-care (01) ==
LOC: EDH 21:04
DX: E87.6 Hypokalemia (principal); D64.9 Anemia, unspecified; E78.5 Hyperlipidemia, unspecified; I10 Essential (primary) hypertension; F03.90 Unspecified dementia, unspecified severity, without behavioral disturbance, psychotic disturbance, mood disturbance, and anxiety; K21.9 Gastro-esophageal reflux disease without esophagitis; Z90.49 Acquired absence of other specified parts of digestive tract; Z90.710 Acquired absence of both cervix and uterus; Z88.6 Allergy status to analgesic agent; Z88.8 Allergy status to other drugs, medicaments and biological substances
CPT/HCPCS: 36415; 74018; 80053; 85025; 96372; 99284; J2060

== ENCOUNTER 2020-03-30 16:56 | Emergency (ER) | payer OTHER ==
[2020-03-30] MEDS ORDERED: ONDANSETRON HCL 4 MG/2 ML VIAL ONE (17:21)
[2020-03-30 17:45] LABS: BASOPHILS % (AUTO) 0.3 % (0.0-5.0); LYMPHOCYTES % (AUTO) 12.5 % (21.0-51.0); MEAN CORPUSCULAR HEMOGLOBIN 27.7 pg (27.0-33.0); MEAN CORPUSCULAR HGB CONC 31.9 g/dL (32.0-36.0); MEAN CORPUSCULAR VOLUME 86.8 fL (79-99); MONOCYTES % (AUTO) 7.6 % (3.0-13.0); NEUTROPHILS % (AUTO) 76.2 % (40.0-77.0); PLATELET COUNT (AUTO) 312 K/uL (130-400); RED BLOOD CELL COUNT(AUTO) 3.57 MIL/uL (4.00-5.50); RED CELL DISTRIBUTION WIDTH 13.8 % (11.0-15.5); WHITE BLOOD COUNT (AUTO) 7.8 K/uL (4.8-10.8)
[2020-03-30 17:58] LABS: POTASSIUM 3.1 mmol/L (3.5-5.1)
[2020-03-30] MEDS ORDERED: POTASSIUM CHLORIDE 20 MEQ ERTAB PO ONE (18:07)
== END 2020-03-30 18:47 ==
LOC: EDH 16:56
DX: K52.9 Noninfective gastroenteritis and colitis, unspecified (principal); K21.9 Gastro-esophageal reflux disease without esophagitis; E78.5 Hyperlipidemia, unspecified; I10 Essential (primary) hypertension; Z90.49 Acquired absence of other specified parts of digestive tract; Z90.710 Acquired absence of both cervix and uterus; Z72.0 Tobacco use; Z88.8 Allergy status to other drugs, medicaments and biological substances; Z88.6 Allergy status to analgesic agent
CPT/HCPCS: 36415; 80048; 85025; 96361; 96374; 99283; J2405

== ENCOUNTER 2020-03-31 16:52 | Emergency (ER) | payer OTHER ==
[2020-03-31 17:45] LABS: BASOPHILS % (AUTO) 0.3 % (0.0-5.0); EOSINOPHILS % (AUTO) 1.6 % (0.0-8.0); HEMATOCRIT 29.8 % (36-48); MEAN CORPUSCULAR HEMOGLOBIN 27.9 pg (27.0-33.0); MEAN CORPUSCULAR HGB CONC 32.2 g/dL (32.0-36.0); MEAN CORPUSCULAR VOLUME 86.6 fL (79-99); MONOCYTES % (AUTO) 9.3 % (3.0-13.0); NEUTROPHILS % (AUTO) 71.7 % (40.0-77.0); PLATELET COUNT (AUTO) 278 K/uL (130-400); RED BLOOD CELL COUNT(AUTO) 3.44 MIL/uL (4.00-5.50); WHITE BLOOD COUNT (AUTO) 6.3 K/uL (4.8-10.8)
[2020-03-31 17:53] LABS: POTASSIUM 3.3 mmol/L (3.5-5.1)
[2020-03-31] MEDS ORDERED: LOPERAMIDE HCL 2 MG CAP PO ONE (17:57)
[2020-03-31] MEDS ORDERED: ONDANSETRON HCL 4 MG/2 ML VIAL ONE (17:57)
[2020-03-31] MEDS ORDERED: SODIUM CHLORIDE 0.9% 500ML 500 ML IV ONE (17:58)
== END 2020-03-31 18:26 | disposition home or self-care (01) ==
LOC: EDH 16:52
DX: A08.4 Viral intestinal infection, unspecified (principal); E11.9 Type 2 diabetes mellitus without complications; I10 Essential (primary) hypertension; K21.9 Gastro-esophageal reflux disease without esophagitis; F03.90 Unspecified dementia, unspecified severity, without behavioral disturbance, psychotic disturbance, mood disturbance, and anxiety; Z88.6 Allergy status to analgesic agent; Z88.8 Allergy status to other drugs, medicaments and biological substances; Z90.49 Acquired absence of other specified parts of digestive tract; Z90.710 Acquired absence of both cervix and uterus; Z98.890 Other specified postprocedural states; Z87.891 Personal history of nicotine dependence
CPT/HCPCS: 36415; 80048; 85025; 96374; 99283; J2405; J7040

== ENCOUNTER 2020-04-26 22:27 | Emergency (ER) | payer OTHER ==
[2020-04-27] MEDS ORDERED: TETANUS/DIPHTHERIA TOXOID [ADULT] 0.5 ML VIAL IM ONE
== END 2020-04-27 00:24 | disposition home or self-care (01) ==
LOC: EDH 22:27
DX: S41.111A Laceration without foreign body of right upper arm, initial encounter (principal); S80.01XA Contusion of right knee, initial encounter; K21.9 Gastro-esophageal reflux disease without esophagitis; E78.5 Hyperlipidemia, unspecified; I10 Essential (primary) hypertension; Z90.49 Acquired absence of other specified parts of digestive tract; Z90.710 Acquired absence of both cervix and uterus; Z88.6 Allergy status to analgesic agent; Z88.8 Allergy status to other drugs, medicaments and biological substances; W18.39XA Other fall on same level, initial encounter; Y93.89 Activity, other specified; Y92.89 Other specified places as the place of occurrence of the external cause; Y99.8 Other external cause status
CPT/HCPCS: 11042; 70450; 73562; 90471; 90714

== ENCOUNTER 2020-07-15 12:02 | Emergency (ER) | payer OTHER ==
[2020-07-15 12:59] LABS: BASOPHILS % (AUTO) 0.3 % (0.0-5.0); EOSINOPHILS % (AUTO) 0.5 % (0.0-8.0); HEMATOCRIT 34.3 % (36-48); LYMPHOCYTES % (AUTO) 15.1 % (21.0-51.0); MEAN CORPUSCULAR HEMOGLOBIN 28.1 pg (27.0-33.0); MEAN CORPUSCULAR HGB CONC 33.5 g/dL (32.0-36.0); MEAN CORPUSCULAR VOLUME 83.9 fL (79-99); MONOCYTES % (AUTO) 5.1 % (3.0-13.0); NEUTROPHILS % (AUTO) 78.6 % (40.0-77.0); PLATELET COUNT (AUTO) 234 K/uL (130-400); RED BLOOD CELL COUNT(AUTO) 4.09 MIL/uL (4.00-5.50); RED CELL DISTRIBUTION WIDTH 13.4 % (11.0-15.5); WHITE BLOOD COUNT (AUTO) 9.3 K/uL (4.8-10.8)
[2020-07-15 13:01] LABS: APPEARANCE,URINE Clear (CLEAR); BILIRUBIN,URINE Negative (NEGATIVE); COLOR,URINE Yellow (YELLOW); GLUCOSE, URINE (UA) Negative (NEGATIVE); KETONES,URINE Negative (NEGATIVE); LEUKOCYTE ESTERASE ,URINE Negative (NEGATIVE); NITRATE,URINE Negative (NEGATIVE); OCCULT BLOOD,URINE Negative (NEGATIVE); PROTEIN,URINE Negative (NEGATIVE); UROBILINOGEN,URINE 0.2 mg/dL (0.2-1.0)
[2020-07-15 13:13] LABS: POTASSIUM 3.8 mmol/L (3.5-5.1)
[2020-07-15 13:19] LABS: ALBUMIN 3.4 g/dL (3.5-5.0); BILIRUBIN,TOTAL 0.2 mg/dL (0.2-1.0); TOTAL PROTEIN, SERUM 7.5 g/dL (6.0-8.3)
== END 2020-07-15 15:50 | disposition home or self-care (01) ==
LOC: EDH 12:02
DX: R55 Syncope and collapse (principal); F41.9 Anxiety disorder, unspecified; I10 Essential (primary) hypertension; E78.5 Hyperlipidemia, unspecified; K21.9 Gastro-esophageal reflux disease without esophagitis; F03.90 Unspecified dementia, unspecified severity, without behavioral disturbance, psychotic disturbance, mood disturbance, and anxiety; Z88.6 Allergy status to analgesic agent; Z88.8 Allergy status to other drugs, medicaments and biological substances; Z98.890 Other specified postprocedural states; Z90.710 Acquired absence of both cervix and uterus
CPT/HCPCS: 36415; 71045; 80053; 81003; 82550; 83605; 84484; 85025; 93005

== ENCOUNTER 2020-08-21 17:16 | Emergency (ER) | payer OTHER ==
[2020-08-21] MEDS ORDERED: ONDANSETRON HCL 4 MG/2 ML VIAL ONE (17:45)
[2020-08-21] MEDS ORDERED: KETOROLAC TROMETHAMINE 15MG/ML ONE (17:45)
[2020-08-21] MEDS ORDERED: SODIUM CHLORIDE 0.9% 1000ML 1,000 ML IV ONE (17:45)
[2020-08-21 17:53] LABS: BASOPHILS % (AUTO) 0.4 % (0.0-5.0); EOSINOPHILS % (AUTO) 3.1 % (0.0-8.0); LYMPHOCYTES % (AUTO) 16.9 % (21.0-51.0); MEAN CORPUSCULAR HEMOGLOBIN 27.7 pg (27.0-33.0); MEAN CORPUSCULAR HGB CONC 33.1 g/dL (32.0-36.0); MEAN CORPUSCULAR VOLUME 83.8 fL (79-99); MONOCYTES % (AUTO) 6.9 % (3.0-13.0); NEUTROPHILS % (AUTO) 72.1 % (40.0-77.0); PLATELET COUNT (AUTO) 208 K/uL (130-400); RED BLOOD CELL COUNT(AUTO) 3.82 MIL/uL (4.00-5.50); RED CELL DISTRIBUTION WIDTH 13.7 % (11.0-15.5); WHITE BLOOD COUNT (AUTO) 9.7 K/uL (4.8-10.8)
[2020-08-21 18:02] LABS: CREATININE 0.9 mg/dL (0.5-1.5); POTASSIUM 3.6 mmol/L (3.5-5.1)
[2020-08-21 18:06] LABS: ALBUMIN 3.2 g/dL (3.5-5.0); BILIRUBIN,TOTAL 0.4 mg/dL (0.2-1.0); TOTAL PROTEIN, SERUM 7.6 g/dL (6.0-8.3)
[2020-08-21] MEDS ORDERED: FENTANYL CITRATE PF 50 MCG/1 ML 2ML VIAL ONE (18:33)
[2020-08-21] MEDS ORDERED: IOHEXOL-350 75 ML VIAL IV ONE (19:12)
[2020-08-21] MEDS ORDERED: METRONIDAZOLE 500 MG TABLET ONE (21:30)
[2020-08-21] MEDS ORDERED: LEVOFLOXACIN 500 MG/D5W 100 ML 100 ML ONE (21:31)
[2020-08-21] MEDS ORDERED: LACTULOSE 20 GM/30 ML UDCUP ONE (21:39)
== END 2020-08-21 22:45 | disposition home or self-care (01) ==
LOC: EDH 17:16
DX: K57.32 Diverticulitis of large intestine without perforation or abscess without bleeding (principal); K59.00 Constipation, unspecified; K21.9 Gastro-esophageal reflux disease without esophagitis; I10 Essential (primary) hypertension; Z90.49 Acquired absence of other specified parts of digestive tract; Z90.710 Acquired absence of both cervix and uterus; Z88.6 Allergy status to analgesic agent; Z88.8 Allergy status to other drugs, medicaments and biological substances; Z88.2 Allergy status to sulfonamides; Z88.5 Allergy status to narcotic agent
CPT/HCPCS: 36415; 74177; 76705; 80053; 82150; 83690; 85025; 96361; 96365; 96375; 99285; J1885; J1956; J2405; J3010; J7030; Q9967

== ENCOUNTER 2022-12-08 09:09 | Emergency (ER) | payer OTHER, MEDICARE ==
[~2022-12-08] VITALS: Ht 167.6 cm; Wt 71.7 kg
[~2022-12-08 09:09] MED LIST changes: -DOXY100C2 PO; +DOXY100C5 PO
[2022-12-08] MEDS ORDERED: LORAZEPAM 2 MG/ML 1 ML VIAL IM ONE (10:00)
[2022-12-08] MEDS ORDERED: ACETAMINOPHEN 500 MG TABLET PO ONE (10:00)
[2022-12-08] MEDS ORDERED: ACET-66 PO (11:50)
[2022-12-08 12:06] VITALS: BP 172/55
== END 2022-12-08 12:07 | disposition home or self-care (01) ==
LOC: EDH 09:09
DX: M26.601 Right temporomandibular joint disorder, unspecified (principal); I10 Essential (primary) hypertension; Z79.52 Long term (current) use of systemic steroids; Z79.899 Other long term (current) drug therapy; Z88.5 Allergy status to narcotic agent; Z88.6 Allergy status to analgesic agent
CPT/HCPCS: 99283; 70100; 96372; J2060

== ENCOUNTER 2023-05-29 09:28 | Emergency (ER) | payer OTHER, MEDICARE ==
[~2023-05-29] VITALS: Ht 167.6 cm; Wt 68.9 kg
[~2023-05-29 09:28] MED LIST changes: +ACET-66 PO
[2023-05-29] MEDS ORDERED: DEXAMETHASONE SOD PHOSPHATE 4 MG/ML 1ML VIAL IV ONE (10:30)
[2023-05-29] MEDS ORDERED: 0.9%NACL 1000ML 1,000 ML IV ONE (10:30)
[2023-05-29] MEDS ORDERED: ALBUTEROL 0.083% 2.5 MG/3 ML INH IH ONE (10:30)
[2023-05-29] MEDS ORDERED: FAMOTIDINE 20MG VIAL IV ONE (10:30)
[2023-05-29 10:37] LABS: BASOPHILS # (AUTO) 0.03 K/uL (0.00-0.20); BASOPHILS % (AUTO) 0.3 % (0.0-5.0); HEMATOCRIT 31.4 % (36-48); IMMATURE GRANULOCYTE ABSOLUTE 0.03 K/uL (0-1); LYMPHOCYTES # (AUTO) 0.6 K/uL (1.0-4.8); LYMPHOCYTES % (AUTO) 6.9 % (21.0-51.0); MEAN CORPUSCULAR HEMOGLOBIN 28.7 pg (27.0-33.0); MEAN CORPUSCULAR HGB CONC 33.1 g/dL (32.0-36.0); MEAN CORPUSCULAR VOLUME 86.5 fL (79-99); MONOCYTES # (AUTO) 0.7 K/uL (0.1-1.0); MONOCYTES % (AUTO) 7.9 % (3.0-13.0); NEUTROPHILS # (AUTO) 7.5 K/uL (1.8-7.7); NEUTROPHILS % (AUTO) 84.6 % (40.0-77.0); PLATELET COUNT (AUTO) 176 K/uL (130-400); RED BLOOD CELL COUNT(AUTO) 3.63 MIL/uL (4.00-5.50); RED CELL DISTRIBUTION WIDTH 13.7 % (11.0-15.5); WHITE BLOOD COUNT (AUTO) 8.8 K/uL (4.8-10.8)
[2023-05-29 10:40] VITALS: PULSE 80; RESP 14
[2023-05-29 10:44] LABS: CREATININE 1.1 mg/dL (0.5-1.5); POTASSIUM 4.3 mmol/L (3.5-5.1)
[2023-05-29 10:59] LABS: APPEARANCE,URINE CLEAR (CLEAR); BILIRUBIN,URINE NEGATIVE (NEGATIVE); COLOR,URINE LIGHT-YELLOW (YELLOW); GLUCOSE, URINE (UA) NEGATIVE (NEGATIVE); KETONES,URINE NEGATIVE (NEGATIVE); LEUKOCYTE ESTERASE ,URINE 500 Leu/uL (NEGATIVE); NITRATE,URINE NEGATIVE (NEGATIVE); OCCULT BLOOD,URINE MODERATE (NEGATIVE); PH,URINE 7.5 (5.0-8.0); PROTEIN,URINE 20 mg/dL (NEGATIVE); UROBILINOGEN,URINE 0.2 mg/dL (0.2-1.0)
[2023-05-29] MEDS ORDERED: ACETAMINOPHEN 500 MG TABLET PO ONE (11:00)
[2023-05-29 11:10] LABS: ADD UA MICROSCOPIC YES
[2023-05-29 11:12] LABS: INFLUENZA TYPE A Negative For Type A (NEGATIVE); INFLUENZA TYPE B Negative For Type B (NEGATIVE)
[2023-05-29 11:52] LABS: BACTERIA,URINE RARE /HPF (None Seen); MUCUS,URINE RARE LPF (None Seen); SQUAMOUS EPITHELIAL CELL,UR MOD /HPF (0-2)
[2023-05-29 13:38] VITALS: TEMP 99.1
[2023-05-29] MEDS ORDERED: CEFTRIAXONE 2GM VIAL IVPB ONE (14:00)
[2023-05-29 14:16] LABS: COVID19 (SARS ANTIGEN RAPID) POSITIVE FOR SARS AG (NEGATIVE)
[2023-05-29] MEDS ORDERED: CEPH500B PO (14:20)
[2023-05-29] MEDS ORDERED: ALBUHFA IH (14:20)
[2023-05-29 14:28] VITALS: BP 127/78; PULSE 61; RESP 20; O2SAT 98
== END 2023-05-29 15:00 | disposition home or self-care (01) ==
LOC: EDH 09:28
DX: U07.1 COVID-19 (principal); N39.0 Urinary tract infection, site not specified; I10 Essential (primary) hypertension; Z79.899 Other long term (current) drug therapy; Z98.890 Other specified postprocedural states; Z88.5 Allergy status to narcotic agent; Z88.6 Allergy status to analgesic agent; Z88.8 Allergy status to other drugs, medicaments and biological substances
CPT/HCPCS: 99284; 96365; 96375; 96361; 87426; 80048; 85025; 87088; 87804 ×2; 81001; 36415; 94640; J1100; J3490; J7030; J0696

== ENCOUNTER 2023-12-17 19:18 | Emergency (ER) | payer MEDICARE ==
[~2023-12-17] VITALS: Ht 167.6 cm; Wt 68.5 kg
[~2023-12-17 19:18] MED LIST changes: +ALBUHFA IH; +CEPH500B PO
[2023-12-17 19:59] LABS: BASOPHILS # (AUTO) 0.04 K/uL (0.00-0.20); BASOPHILS % (AUTO) 0.6 % (0.0-5.0); EOSINOPHILS # (AUTO) 0.43 K/uL (0.00-0.70); EOSINOPHILS % (AUTO) 6.2 % (0.0-8.0); HEMATOCRIT 28.6 % (36-48); IMMATURE GRANULOCYTE ABSOLUTE 0.03 K/uL (0-1); LYMPHOCYTES # (AUTO) 2.1 K/uL (1.0-4.8); LYMPHOCYTES % (AUTO) 29.6 % (21.0-51.0); MEAN CORPUSCULAR HGB CONC 33.6 g/dL (32.0-36.0); MEAN CORPUSCULAR VOLUME 83.4 fL (79-99); MONOCYTES # (AUTO) 0.5 K/uL (0.1-1.0); MONOCYTES % (AUTO) 7.6 % (3.0-13.0); NEUTROPHILS # (AUTO) 3.9 K/uL (1.8-7.7); NEUTROPHILS % (AUTO) 55.6 % (40.0-77.0); PLATELET COUNT (AUTO) 168 K/uL (130-400); RED BLOOD CELL COUNT(AUTO) 3.43 MIL/uL (4.00-5.50); RED CELL DISTRIBUTION WIDTH 14.6 % (11.0-15.5)
[2023-12-17 20:20] LABS: CREATININE 1.1 mg/dL (0.5-1.0); POTASSIUM 3.5 mmol/L (3.5-5.1)
[2023-12-17 20:25] LABS: ALBUMIN 3.4 g/dL (3.5-5.0); BILIRUBIN,TOTAL 0.2 mg/dL (0.2-1.0); MAGNESIUM 1.6 mg/dL (1.80-2.40); TOTAL PROTEIN, SERUM 7.5 g/dL (6.0-8.3)
[2023-12-17 20:31] LABS: B-TYPE NATRIURETIC PEPTIDE 229 pg/mL (0-100)
[2023-12-17 20:38] LABS: ABG BASE EXCESS -1.8 mmol/L (-2.0-3.0); ABG HCO3 19.2 mmol/L (21.0-28.0); ABG OXYGEN SATURATION 98.9 % (95.0-99.0); ABG PCO2 25 mmHg (32-45); ABG PH 7.513 (7.35-7.450); PO2, ARTERIAL BG 130.9 mmHg (83.0-108.0); VENT MODE, BG ROOMAIR (ROOM AIR)
[2023-12-17 20:41] VITALS: PULSE 64; RESP 19
[2023-12-17] MEDS: IPRATROPIUM/ALBUTEROL SULFATE 3 ML SOLUTION IH ONE (20:41)
[2023-12-17] MEDS: MAGNESIUM OXIDE 400 MG TABLET PO ONE (22:07)
[2023-12-17] MEDS: FUROSEMIDE 20 MG TABLET PO ONE (22:13)
[2023-12-17] MEDS ORDERED: ALBU18HF7 IH (22:13)
[2023-12-17 22:20] VITALS: BP 120/74; PULSE 72; RESP 20; O2SAT 99
== END 2023-12-17 22:28 | disposition home or self-care (01) ==
LOC: EDH 19:18
DX: R10.13 Epigastric pain (principal); J45.909 Unspecified asthma, uncomplicated; I10 Essential (primary) hypertension; Z79.899 Other long term (current) drug therapy; Z98.890 Other specified postprocedural states; F41.9 Anxiety disorder, unspecified; Z88.5 Allergy status to narcotic agent; Z88.6 Allergy status to analgesic agent; Z88.8 Allergy status to other drugs, medicaments and biological substances
CPT/HCPCS: 36415; 36600; 71045; 80053; 82803; 83735; 83880; 84484; 85025; 93005; 94640

== ENCOUNTER 2024-01-01 13:56 | Emergency (ER) | payer OTHER, MEDICARE ==
[~2024-01-01] VITALS: Ht 170.2 cm; Wt 68.2 kg
[~2024-01-01 13:56] MED LIST changes: +ALBU18HF7 IH
[2024-01-01 14:31] LABS: BASOPHILS # (AUTO) 0.04 K/uL (0.00-0.20); BASOPHILS % (AUTO) 0.5 % (0.0-5.0); EOSINOPHILS # (AUTO) 0.39 K/uL (0.00-0.70); EOSINOPHILS % (AUTO) 5.2 % (0.0-8.0); HEMATOCRIT 28.8 % (36-48); IMMATURE GRANULOCYTE ABSOLUTE 0.02 K/uL (0-1); LYMPHOCYTES # (AUTO) 1.8 K/uL (1.0-4.8); LYMPHOCYTES % (AUTO) 24.4 % (21.0-51.0); MEAN CORPUSCULAR HEMOGLOBIN 27.9 pg (27.0-33.0); MEAN CORPUSCULAR HGB CONC 33.3 g/dL (32.0-36.0); MEAN CORPUSCULAR VOLUME 83.7 fL (79-99); MONOCYTES # (AUTO) 0.5 K/uL (0.1-1.0); MONOCYTES % (AUTO) 6.2 % (3.0-13.0); NEUTROPHILS # (AUTO) 4.8 K/uL (1.8-7.7); NEUTROPHILS % (AUTO) 63.4 % (40.0-77.0); PLATELET COUNT (AUTO) 213 K/uL (130-400); RED BLOOD CELL COUNT(AUTO) 3.44 MIL/uL (4.00-5.50); WHITE BLOOD COUNT (AUTO) 7.5 K/uL (4.8-10.8)
[2024-01-01 14:36] LABS: CREATININE 1.2 mg/dL (0.5-1.0); POTASSIUM 3.6 mmol/L (3.5-5.1)
[2024-01-01 14:44] LABS: ALBUMIN 3.4 g/dL (3.5-5.0); BILIRUBIN,TOTAL 0.2 mg/dL (0.2-1.0); TOTAL PROTEIN, SERUM 7.5 g/dL (6.0-8.3)
[2024-01-01 15:29] LABS: APPEARANCE,URINE CLEAR (CLEAR); BILIRUBIN,URINE NEGATIVE (NEGATIVE); COLOR,URINE YELLOW (YELLOW); GLUCOSE, URINE (UA) NEGATIVE (NEGATIVE); KETONES,URINE NEGATIVE (NEGATIVE); LEUKOCYTE ESTERASE ,URINE SMALL Leu/uL (NEGATIVE); NITRATE,URINE NEGATIVE (NEGATIVE); OCCULT BLOOD,URINE TRACE-INTACT (NEGATIVE); PROTEIN,URINE NEGATIVE (NEGATIVE); UROBILINOGEN,URINE 0.2 mg/dL (0.2-1.0)
[2024-01-01 15:30] LABS: ADD UA MICROSCOPIC YES
[2024-01-01 15:36] LABS: RBC,URINE 0-1 /HPF (0-1); SQUAMOUS EPITHELIAL CELL,UR RARE /HPF (0-2); UNCLASSIFIED CRYSTAL 2 /HPF (None Seen)
[2024-01-01 17:31] VITALS: BP 139/41; PULSE 55; RESP 18; O2SAT 98
[2024-01-01] MEDS ORDERED: CEFTRIAXONE 1G VIAL ONE (18:47)
[2024-01-01] MEDS ORDERED: CEPH500B PO (18:49)
[2024-01-01] MEDS ORDERED: CEFTRIAXONE 1G VIAL IM ONE (19:00)
== END 2024-01-01 18:57 | disposition home or self-care (01) ==
LOC: EDH 13:56
DX: N39.0 Urinary tract infection, site not specified (principal); R53.1 Weakness; I10 Essential (primary) hypertension; Z79.52 Long term (current) use of systemic steroids; Z79.899 Other long term (current) drug therapy; Z88.5 Allergy status to narcotic agent; Z88.6 Allergy status to analgesic agent
CPT/HCPCS: 99285; 71045; 80053; 85025; 81001; 36415; 93005; J0696; 96372